=== PATIENT | male | born 1960 | race Caucasian/White ===

== ENCOUNTER 2016-12-18 12:10 | Day surgery (SDC) | payer OTHER ==
[~2016-12-18] VITALS: Ht 175.3 cm; Wt 75.0 kg
[2016-12-18] VITALS (11 sets, daily range): BP systolic 114–140; BP diastolic 50–87; PULSE 54–67; RESP 10–22; Ht 175.3 cm; Wt 75.0 kg
[~2016-12-18 12:10] MED LIST: CEFAZOLIN 1 GM INJ ONE; CEFAZOLIN 1 GM/50 ML (PMX) 50 ML IVPB ONE; DESFLURANE 15 MIN ONE; NO MEDS; SOD CHLORIDE 0.9% 1,000 ML IV ONE
[2016-12-18] MEDS ORDERED: BUPIVACAINE 0.25%/EPI (SDV) 30 ML INJ ONE (13:04)
[2016-12-18] MEDS ORDERED: FENTAnyl 50 MCG/ML VIAL ONE (13:44)
[2016-12-18] MEDS ORDERED: ROCURONIUM 50 MG INJ ONE (13:44)
[2016-12-18] MEDS ORDERED: PROPOFOL 20 ML ONE (13:44)
[2016-12-18] MEDS ORDERED: MIDAZOLAM 1 MG/ML 2 ML INJ ONE (13:44)
[2016-12-18] MEDS ORDERED: SUCCINYLCHOLINE CHLORIDE 100 MG/5 ML SYG IV ONE (13:44)
[2016-12-18] MEDS ORDERED: LIDOCAINE 2% (SDV) 5 ML INJ ONE (13:44)
[2016-12-18] MEDS ORDERED: PROCHLORPERAZINE 10 MG INJ IV PRN (14:00)
[2016-12-18] MEDS ORDERED: DIPHENHYDRAMINE 50 MG INJ IV PRN (14:00)
[2016-12-18] MEDS ORDERED: OXYCODONE/ACETAMINOPHEN (5/325) TAB PO PRN ×4 (14:00→15:30)
[2016-12-18] MEDS ORDERED: MEPERIDINE 25 MG INJ IV PRN (14:00)
[2016-12-18] MEDS ORDERED: FENTAnyl 50 MCG/ML VIAL IV PRN (14:00)
[2016-12-18] MEDS ORDERED: HYDROmorphONE (0.2 MG/ML) 10ML SYG IV PRN ×2 (14:00)
[2016-12-18] MEDS ORDERED: ONDANSETRON 4 MG INJ IV PRN (14:00)
[2016-12-18] MEDS ORDERED: METOCLOPRAMIDE 10 MG INJ ONE (14:16)
[2016-12-18] MEDS ORDERED: ONDANSETRON 4 MG INJ ONE (14:16)
[2016-12-18] MEDS ORDERED: DEXAMETHASONE 4 MG/ML 1 ML INJ ONE (14:16)
[2016-12-18] MEDS ORDERED: NEOSTIGMINE 3 MG/3 ML SYRINGE ONE (14:44)
[2016-12-18] MEDS ORDERED: GLYCOPYRROLATE 0.4 MG INJ ONE (14:44)
[2016-12-18] MEDS ORDERED: KETOROLAC 30 MG INJ ONE (14:44)
[2016-12-18] MEDS ORDERED: KETOROLAC 30 MG INJ IV PRN (15:30)
[2016-12-18] MEDS ORDERED: morphine 2 MG INJ IV PRN (15:30)
[2016-12-18] MEDS ORDERED: IBUPROFEN 600 MG TAB PO PRN (15:30)
--- NOTE | 2016-12-18 15:36 | OPR ---
Date/Time of Note Date/Time of Note DATE: 12/18/16 TIME: 15:29 Operative Report Procedure Date: Dec 18, 2016 Preoperative Diagnosis Right inguinal hernia without obstruction or gangrene Postoperative Diagnosis Right inguinal hernia without obstruction or gangrene Operation Performed 1. Riding a hernia repair with mesh 2. Implantation of biological extracellular matrix 3. Right ilioinguinal nerve block Surgeon see signature line Anesthesia Type: general Anesthesiologist: JOSH NGUYEN MD Estimated Blood Loss: minimal Transfusion Required: no Specimen: none Grafts/Implants 1. Ethicon ultra pro plug and patch size medium 2. ACell extracellular biological matrix 1000 mg Complications: no Pt Condition Post Procedure: stable Disposition: PACU Indications The patient is a 56-year-old male who presented to the office complaining of a painful right groin bulge. He was diagnosed on clinical exam as having a right inguinal hernia. The patient was scheduled for open right inguinal hernia repair with mesh to prevent sequelae of hernia disease which include, but are not limited to: Incarceration and strangulation. All risks and benefits of the procedure including but not limited to: Wound infection, excessive bleeding, postoperative seroma/hematoma formation, nerve injury which may be temporary versus permanent, injury to the reproductive organs including the vas deferens and the testicle which may lead to testicular atrophy, injury to intra- abdominal organs necessitating subsequent operation, hernia recurrence, chronic pain, etc. were all explained to the patient full detail. The patient fully understood and wished to proceed with the procedure. Informed consent was therefore obtained. Operative\Procedure Findings Moderate sized right indirect inguinal hernia containing fat Procedure Description The patient was brought to the operating room and placed supine on the operating table. Bilateral sequential compression devices were placed on both lower extremities. A dose of broad-spectrum perioperative intravenous antibiotics was given. After the induction of smooth general anesthesia the patient's abdomen and bilateral groins were prepped and draped in standard surgical fashion. After performance of the surgical timeout 0.25% Marcaine with epinephrine was injected over the area of the incision. Incision was then made using a 15 blade scalpel from the right pubic tubercle towards the right anterior superior iliac spine. Incision was carried down through the skin into the subcutaneous tissues using Bovie electrocautery. Mac's fascia was incised and the aponeurosis of the external oblique muscle was reached. The aponeurosis of the external oblique muscle was then incised in the direction of its fibers using a 15 blade scalpel and further opened using Metzenbaum scissors. Using blunt dissection the spermatic cord was then mobilized off of the floor of the inguinal canal and encircled using a Yohan. There was some chronic scarring of the spermatic cord to the floor of the inguinal canal. Cremasteric muscles were incised and dissection of the cord was begun. A moderate size indirect hernia sac was identified. It was dissected off of the cord. Dissection was continued towards the neck of the hernia. The sac was then reduced back into the intra-abdominal cavity. The indirect hernia defect was then repaired using a medium sized Ethicon ultra pro plug. The plug was sutured in place using interrupted 3-0 Vicryl sutures. An onlay mesh was then used to reconstruct the floor of the inguinal canal. It was secured in place using interrupted 2-0 Novafil sutures. Both the plug and the mesh were soaked in antibiotic irrigation prior to placement in the field. A slit was made in the mesh to accommodate the spermatic cord. With the repair complete it was examined and noted to be hemostatic and tension-free. The wound cavity was then irrigated with more antibiotic containing irrigation. To aid in wound regeneration and prevent microbial infection 1000 mg of acellular biological extracellular matrix powder was applied on top of the mesh and in the subcutaneous tissues. Spermatic cord was then placed back into its anatomical position. The aponeurosis of the external oblique muscle was then reapproximated using a running 3-0 Vicryl suture. Incision was then closed in layers using a running 3-0 Vicryl suture for the Mac's fascia. The skin was then reapproximated using 4-0 Monocryl suture in a running subcuticular fashion. Attention was then turned to the right ilioinguinal nerve block. 10 cc of 0.25% Marcaine with epinephrine was then injected in a radial fashion approximately 2 fingerbreadths medial and inferior to the right anterior superior iliac spine. Further local anesthesia was then injected around the incision site. Incision was cleaned and Dermabond was applied. The patient was awoken from anesthesia and transferred to the recovery room in stable condition. Both testicles were palpated and noted to be in their anatomical positions at the end of the case. All counts were correct at the end of the case 2. CHARLI HERNÁNDEZ MD Dec 18, 2016 15:36
== END 2016-12-18 16:50 | disposition home or self-care (01) ==
LOC: SDS 12:10
PROVIDERS: ATTEND Surgery
DX: K40.90 Unilateral inguinal hernia, without obstruction or gangrene, not specified as recurrent (principal)
CPT/HCPCS: 49505; C1781; J0690; J1100; J1885; J2250; J2405; J2710; J2765; J3010; J7999; Q4118